=== PATIENT | female | born 1975 | race Caucasian/White ===

== ENCOUNTER 2018-12-29 12:09 | Inpatient (IN) ==
[2018-12-29] MEDS ORDERED: NICODERM PATCH TD PRN (15:29)
[2018-12-29] MEDS ORDERED: ZOFRAN ODT PO PRN (15:29)
[2018-12-29] MEDS ORDERED: SENOKOT PO PRN (15:29)
[2018-12-29] MEDS ORDERED: NICOTINE GUM BUCCAL PRN (15:29)
[2018-12-29] MEDS ORDERED: D5W 1,000 ML IV PRN (15:29)
[2018-12-29] MEDS ORDERED: PHENOBARBITAL IV PRN (15:29)
[2018-12-29] MEDS ORDERED: IMODIUM PO PRN ×2 (15:29)
[2018-12-29] MEDS ORDERED: TUBERSOL ID ONE (15:29)
[2018-12-29] MEDS ORDERED: MAALOX PLUS LIQUID PO PRN (15:29)
[2018-12-29] MEDS ORDERED: ZOFRAN IV PRN (15:29)
[2018-12-29] MEDS ORDERED: MOTRIN PO PRN (15:29)
[2018-12-29] MEDS ORDERED: DULCOLAX PR PRN (15:29)
[2018-12-29] MEDS ORDERED: DESYREL PO PRN (15:29)
[2018-12-29] MEDS ORDERED: ZOFRAN IM PRN (15:29)
[2018-12-29] MEDS ORDERED: TYLENOL PO PRN (15:29)
[2018-12-29 17:02] LABS: URINE SOURCE CLEAN CATCH
[2018-12-29 17:26] LABS: BILIRUBIN URINE NEGATIVE (NEGATIVE); BLOOD URINE 1+ (NEGATIVE); CLARITY CLEAR (CLEAR); COLOR YELLOW; GLUCOSE URINE NEGATIVE (NEGATIVE); KETONE URINE 1+(Small) mg/dL (NEGATIVE); LEUKOCYTES URINE TRACE (NEGATIVE); NITRITE URINE NEGATIVE (NEGATIVE); PH URINE 6.5; PROTEIN URINE 1+(30 mg/dL) mg/dL (NEGATIVE); UROBILINOGEN URINE 1 mg/dL
[2018-12-29 17:32] LABS: URINE BACTERIA 1+ /HFP; URINE EPITHELIAL CELLS >10 /HPF (<10)
[2018-12-29 17:33] LABS: URINE CAST NONE SEEN /LPF; URINE CRYSTAL NONE SEEN /HPF; URINE RBC <10 /HPF (<10); URINE WBC <10 /HPF (<10); URINE YEAST NONE SEEN /HPF
[2018-12-29 17:38] LABS: AGAP 12; ALBUMIN 4.1 g/dL (3.5-5.0); ALKALINE PHOSPHATASE 46 U/L (32-104); AMYLASE 66 U/L (20-200); BUN 14 mg/dL (8-22); CALCIUM 9.3 mg/dL (8.8-10.2); CHLORIDE 102 mmol/L (98-107); COSMO 279; CREATININE 0.8 mg/dL (0.5-0.9); ESTIMATED GFR > 60; GLUCOSE 90 mg/dL (70-104); GOT 18 U/L (10-30); GPT 11 U/L (10-36); LIPASE 115 U/L (13-60); POTASSIUM 3.8 mmol/L (3.5-5.1); SODIUM 140 mmol/L (136-145); TCO2 27 mmol/L (25-35); TOTAL PROTEIN 6.8 g/dL (6.3-8.3)
[2018-12-29] MEDS ORDERED: BENTYL PO PRN (18:02)
[2018-12-29] MEDS ORDERED: ROBAXIN PO PRN (18:02)
[2018-12-29] MEDS ORDERED: SINEMET 25/100 PO PRN (18:02)
[2018-12-29] MEDS ORDERED: ATIVAN PO PRN (18:02)
[2018-12-29] MEDS: SUBOXONE 2 MG/0.5 MG FILM SL SCH (20:15)
[2018-12-29] MEDS: DEPAKOTE PO SCH (20:15)
[2018-12-29] MEDS: CIPRO PO SCH (20:15)
[2018-12-29 22:24] LABS: HEMATOCRIT 42.4 % (37.0-47.0); MCH 30.8 PG (27-31); MCV 93.2 FL (81-99); MPV 12.7 FL (7.4-10.4); RBC 4.55 XMIL (4.2-5.4); RDW 12.9 % (11.5-14.5); WBC 10.19 X1000 (4.8-10.8)
[2018-12-30] MEDS: PROTONIX PO SCH (06:22)
[2018-12-30 07:38] LABS: UR AMPHETAMINES QUAL NONE DETECTED (NONE DETECT); UR BARBITUATES QUAL NONE DETECTED (NONE DETECT)
[2018-12-30 07:39] LABS: UR BENZODIAZEPIN QUAL NONE DETECTED (NONE DETECT); UR CANNABINOIDS QUAL NONE DETECTED (NONE DETECT); UR COCAINE QUAL NONE DETECTED (NONE DETECT); UR METHADONE QUAL NONE DETECTED (NONE DETECT); UR METHAMPHETAMINE QUAL NONE DETECTED (NONE DETECT); UR OPIATES QUAL PRESUMPTIVE POSITIVE (NONE DETECT); UR OXYCODONE QUAL NONE DETECTED (NONE DETECT); UR PCP QUAL NONE DETECTED (NONE DETECT); UR PROPOXYPHENE QUAL NONE DETECTED (NONE DETECT); UR TCA QUAL NONE DETECTED (NONE DETECT)
[2018-12-30] MEDS: THERA M PLUS PO SCH (09:10)
[2018-12-30] MEDS: TENORMIN PO SCH (09:10)
[2018-12-30] MEDS: FOLIC ACID PO SCH (09:10)
[2018-12-30] MEDS: NEURONTIN PO SCH ×3 (09:10→16:45)
[2018-12-30] MEDS: VITAMIN B-1 PO SCH (09:10)
[2018-12-30] MEDS: SUBOXONE 2 MG/0.5 MG FILM SL SCH ×2 (09:10→20:55)
[2018-12-30] MEDS: DEPAKOTE PO SCH ×2 (09:10→20:55)
[2018-12-30] MEDS: CIPRO PO SCH ×2 (09:10→20:55)
[2018-12-30] MEDS: SEROQUEL PO PRN (20:58)
[2018-12-30] MEDS: ATARAX PO PRN (23:37)
[2018-12-31] MEDS: PROTONIX PO SCH ×2 (05:57→06:00)
--- NOTE | 2018-12-31 07:18 | PROGRESS NOTE ---
DATE: 12/30/2018 SUBJECTIVE: Patient seen and examined by myself on 12/30/2018. She notes that she did not sleep well last night. Still having lots of withdrawal symptoms. Denies any current chest pains or palpitations. No current fevers. States she is still having muscle aches and fidgety. She is not sure if she is going to be able to eat today. PHYSICAL EXAMINATION: Vital Signs: Reviewed. She is awake, alert. She is in no current respiratory distress. Temperature 98 degrees, pulse 82, respiratory 20, BP 136/83. HEENT: Normocephalic. Neck: Supple. CARDIOVASCULAR: Regular rate. No murmurs. Chest: Clear nonlabored. Abdomen: Soft nondistended. Extremities: Moves all extremities. Neurologic: No focal changes. ASSESSMENT: 1. Nausea, vomiting, abdominal pain. 2. Myalgias. 3. Paresthesias. 4. Paroxysmal sweating. 5. Bipolar. 6. Hypertension. 7. Chronic opiate abuse withdrawal and continued stabilization. PLAN: The patient has a history of polysubstance use and abuse. We will continue Suboxone and wean as tolerated. We will go slowly given her polysubstance use history and her psychiatric history. cc: Sam Andujar MD
--- NOTE | 2018-12-31 08:04 | HISTORY AND PHYSICAL ---
PATIENT PROFILE: Patient seen and examined by myself on the -. CHIEF COMPLAINT: Nausea and vomiting. HISTORY OF PRESENT ILLNESS: The patient is a 43-year-old female, who presented [facility] secondary to nausea, vomiting, abdominal pain, myalgias. Notes that she has been abusing opiates. Each time she attempts to improve, her symptoms become too severe, and she has to start using to alleviate said symptoms. SOCIAL HISTORY: She is , unemployed, lives at home in [place]. PAST MEDICAL HISTORY: PTSD, bipolar, schizophrenia, depression, chronic anxiety, neuropathy, chronic pain, hypertension, history of diverticulitis, history of blackouts that are likely drug related. MEDICATIONS: Depakote 500 daily 1000 at bedtime, Neurontin 400 three times daily, tramadol 50 three times daily as needed, atenolol 25 daily, Seroquel 25 at bedtime, and Ativan 0.5 to 1 mg twice daily. ALLERGIES: Sulfa. REVIEW OF SYSTEMS: CINA score is elevated at 9 secondary to nausea, vomiting, tremors, myalgias, frequent hot and cold temperature changes. Denies any hematemesis, hematochezia, melena. Positive constipation. Occasional diarrhea. Denies any chest pain, palpitations. Denies any fevers or chills. Denies headaches, blurred vision, change in her vision. Denies any focalized numbness, tingling or weakness. SUBSTANCE ABUSE HISTORY: The patient was in mental health in 2001. In 2010, she was in mental health at [facility] for 8 days. In 2011, she was in a treatment facility at [facility] for 45 days. Unfortunately, did not remain sober for any length of time after discharge. FAMILY HISTORY: Noncontributory. PHYSICAL EXAMINATION: VITAL SIGNS: Reviewed and stable. GENERAL: She is awake, alert. She is in no current respiratory distress, but is somewhat ill- appearing due to withdrawal symptoms. HEENT: Normocephalic. NECK: Neck is supple. CV: Regular rate. No murmurs. CHEST: Clear, nonlabored. ABDOMEN: Soft, nondistended, nontender. ASSESSMENT: 1. Nausea, vomiting. 2. Abdominal pain. 3. Myalgias. 4. Chronic anxiety. 5. Diaphoresis. 6. Paresthesias. 7. Opiate abuse withdrawal and stabilization. 8. Hypertension. PLAN: We will continue patient in the hospital, continue counseling. Place her on Suboxone. Discussed with her how to wean down. Hopefully, she can wean totally off, although given her extensive psychiatric history, weaning totally off without going home with any type of medication, assisted therapy is probably not in her best interest. Hopefully we can wean down Suboxone and go home on naltrexone. Further orders as needed. cc: Sam Andujar MD
[2018-12-31] MEDS: CIPRO PO SCH ×2 (08:30→20:35)
[2018-12-31] MEDS: DEPAKOTE PO SCH ×2 (08:30→20:36)
[2018-12-31] MEDS: NEURONTIN PO SCH ×3 (08:30→17:24)
[2018-12-31] MEDS: SUBOXONE 2 MG/0.5 MG FILM SL SCH ×2 (08:30→20:37)
[2018-12-31] MEDS: FOLIC ACID PO SCH (08:30)
[2018-12-31] MEDS: TENORMIN PO SCH (08:30)
[2018-12-31] MEDS: VITAMIN B-1 PO SCH (08:30)
[2018-12-31] MEDS: THERA M PLUS PO SCH (08:30)
--- NOTE | 2018-12-31 17:57 | PROGRESS NOTE ---
DATE: 12/29/2018 SUBJECTIVE: Patient overall notes she is feeling much better. She states that she is still having some withdrawal symptoms, but overall they are improving. Denies any fevers or chills. Denies GI or issues currently. OBJECTIVE: Vital Signs: Reviewed. Temperature 98 degrees, pulse 96, respiratory 20, and BP 122/83. General: Patient is awake, alert, and very pleasant talk with. She is in no current respiratory distress. HEENT: Normocephalic. Neck: Supple. CARDIOVASCULAR: Regular rate. No murmurs. Respiratory: Chest clear and nonlabored. Abdomen: Soft. Nondistended. Extremities: Moves all extremities. ASSESSMENT: 1. Nausea and vomiting. Abdominal pain. 2. Myalgias and paresthesias. 3. Paroxysmal sweating. 4. Alcohol. 5. Opiate abuse withdrawal and continued stabilization. PLAN: We will continue current course. Continue to wean as tolerated. Hopefully, she can continue to wean totally off of medication. We will plan on discharging her over the next 1 or 2 days if her symptoms improve. Discussed with patient the use of medication assisted therapy at home, i.e. Suboxone or naltrexone. cc: Sam Andujar MD
[2018-12-31] MEDS: ATARAX PO PRN (20:35)
[2018-12-31] MEDS: SEROQUEL PO PRN (21:43)
[2019-01-01] MEDS: LIBRIUM PO PRN ×2 (02:18→12:59)
[2019-01-01] MEDS: PROTONIX PO SCH (06:26)
[2019-01-01] MEDS: CIPRO PO SCH (09:37)
[2019-01-01] MEDS: VITAMIN B-1 PO SCH (09:37)
[2019-01-01] MEDS: DEPAKOTE PO SCH (09:37)
[2019-01-01] MEDS: THERA M PLUS PO SCH (09:38)
[2019-01-01] MEDS: NEURONTIN PO SCH ×2 (09:38→12:59)
[2019-01-01] MEDS: SUBOXONE 2 MG/0.5 MG FILM SL SCH (09:38)
[2019-01-01] MEDS: FOLIC ACID PO SCH (09:38)
[2019-01-01] MEDS: TENORMIN PO SCH (09:38)
[2019-01-01 13:52] VITALS: BP 115/69
== END 2019-01-01 15:50 | disposition home or self-care (01) | DRG 897 ==
LOC: P.DIRADM 14:36 → P.MEDSURG 14:46
PROVIDERS: ADMIT Family Medicine; ATTEND Family Medicine
CPT/HCPCS: 80053; 80104; 80301; 80305; 80307; 80320; 81001; 82055; 82150; 83690; 84703; 85027; 86580; A9270; G0431; G0434; G0477; G0480; G6040